=== PATIENT | female | born 1945 ===

== ENCOUNTER 2019-02-04 06:40 | Day surgery (SDC) | payer MEDICARE, OTHER ==
[2019-02-04 07:23] VITALS: BMI 33.2
[2019-02-04] MEDS ORDERED: ISOSULFAN BLUE 10 MG/ML VIAL SQ ONE (07:32)
[2019-02-04] MEDS ORDERED: PROMETHAZINE HCL 25 MG/1 ML VIAL IVPUSH PRN (08:53)
[2019-02-04] MEDS ORDERED: ONDANSETRON 4 MG/2 ML VIAL IVPUSH PRN (08:53)
[2019-02-04] MEDS ORDERED: oxyCODONE HCL 5 MG TABLET PO PRN (08:53)
[2019-02-04] MEDS ORDERED: LACTATED RINGERS SOLUTION 1,000 ML IV SCH (09:00)
[2019-02-04] MEDS ORDERED: PROPOFOL 20 ML ONE ×2 (10:29)
[2019-02-04] MEDS ORDERED: LIDOCAINE HCL/PF 2% SDV 5ML VIAL ONE (10:30)
[2019-02-04] MEDS ORDERED: ceFAZolin SODIUM 1 GM VIAL ONE ×2 (10:30→10:39)
[2019-02-04] MEDS ORDERED: SODIUM CHLORIDE 0.9% P/F 10 ML VIAL IJ ONE (10:39)
[2019-02-04] MEDS ORDERED: DEXAMETHASONE SOD PHOSPHATE 4 MG/1 ML VIAL ONE (10:41)
[2019-02-04] MEDS ORDERED: ceFAZolin 2 GRAM PREMIX BAG IVPB ONE (10:42)
[2019-02-04] MEDS ORDERED: LIDOCAINE HCL 1%, 10 MG/ML (20ML VIAL) NR ONE ×2 (10:54)
[2019-02-04] MEDS ORDERED: KETOROLAC TROMETHAMINE 30 MG/1 ML VIAL ONE (11:13)
--- NOTE | 2019-02-04 12:57 | OP ---
DATE OF OPERATION: 02/04/2019 PREOPERATIVE DIAGNOSIS: Left breast cancer. POSTOPERATIVE DIAGNOSIS: Left breast cancer. PROCEDURE: Left breast ultrasound-guided wire localized lumpectomy and sentinel node biopsy. SURGEON: Tanna Torrez MD ANESTHESIA: General. ESTIMATED BLOOD LOSS: Minimal. COMPLICATIONS: None. This was a sterile procedure. INDICATION FOR PROCEDURE: Patient presented with a screening mammogram that noted a density in the lower outer left breast. On ultrasound, this appears to be a solid, suspicious mass. 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 My recommendation was lumpectomy and central node biopsy. The procedure was discussed with all of the questions answered. PROCEDURE IN DETAIL: Patient was brought to [facility] in [place]. Taken down to nuclear medicine where I injected technetium sulfur colloid as an intradermal injection in the left breast 4 o'clock location. She was then brought up to the operating room, and after induction of general anesthesia and IV antibiotics, an intraoperative ultrasound performed by me in the left breast 4 o'clock location 3 cm from the nipple, the lesion in question was identified. This was localized with a Kopans wire. Images were recorded, 5 mL of Isosulfan blue dye were then injected by me into the left subareolar plexus, and the breast was massaged for 5 minutes. The left breast and axilla were then prepped and draped in the usual sterile fashion. A 4-cm incision was made in the left axilla, carried down to the clavipectoral fascia to identify several sentinel lymph nodes. There were 4 sentinel lymph nodes identified. All were hot and blue. There was no other blue dye radioactivity or pathologic feeling lymph nodes in the left axilla; therefore, once hemostasis was assured, a left breast lumpectomy was performed. A wire was used as a guide to get down to the area. Radial incisions were made in the left 4 o'clock location, and an en bloc lumpectomy was performed tagged with a long stitch lateral, short stitch superior. Grossly I felt I was close inferiorly; therefore, I took a new inferior margin with a stitch at the old margin. Once hemostasis was assured, the lumpectomy cavity was closed with an interrupted 2-0 Vicryl, skin approximated with interrupted 3-0 Vicryl, running 4-0 Prolene. The axillary incision also was closed in a routine fashion with interrupted 3-0 Vicryl, running 4-0 Prolene. A sterile dressing of Steri-Strips and Tegaderm were applied as well as a mammary binder. She tolerated the procedure well, was extubated on the operating room table, taken to recovery in good condition. Macarena [id number]
[2019-02-04 15:14] VITALS: BP 126/60; PULSE 72; TEMP 97.8
--- NOTE | 2019-02-08 13:38 | PATH ---
Surgical Pathology Report Patient Name: JOHN MEREDITH [facility]. Rec. #: [id number] /Age/Gender: 1945 (Age: 73) / F Account: [id number] Location: [facility] SURGICAL Taken: 02/04/2019 Received: 02/04/2019 Reported: 02/08/2019 Physicians: Tanna Torrez M.D. Specimen(s) Received A: AXILLARY SENTINEL LYMPH NODE #1, LEFT, HOT AND BLUE B: AXILLARY SENTINEL LYMPH NODE #2, LEFT, HOT AND BLUE C: AXILLARY SENTINEL LYMPH NODE #3, LEFT, HOT AND BLUE D: AXILLARY SENTINEL LYMPH NODE #4, LEFT, HOT AND BLUE E: BREAST, LEFT, LUMPECTOMY F: BREAST, LEFT, NEW INFERIOR MARGIN Clinical History None given Final Diagnosis A. AXILLARY SENTINEL LYMPH NODE #1, LEFT, HOT AND BLUE, EXCISION: TWO LYMPH NODES NEGATIVE FOR CARCINOMA (0/2). B. AXILLARY SENTINEL LYMPH NODE #2, LEFT, HOT AND BLUE, EXCISION: ONE LYMPH NODE NEGATIVE FOR CARCINOMA (0/1). C. AXILLARY SENTINEL LYMPH NODE #3, LEFT, HOT AND BLUE, EXCISION: ONE LYMPH NODE NEGATIVE FOR CARCINOMA (0/1). D. AXILLARY SENTINEL LYMPH NODE #4, LEFT, HOT AND BLUE, EXCISION: ONE LYMPH NODE NEGATIVE FOR CARCINOMA (0/1). E. BREAST, LEFT, LUMPECTOMY: INVASIVE DUCTAL CARCINOMA, MODERATELY DIFFERENTIATED (TUBULE SCORE: 3/3, NUCLEAR GRADE: 2/3, MITOTIC SCORE: 1/3; TOTAL JOSSUE SCORE: 6/9). INVASIVE CARCINOMA MEASURES 1.2 CM IN GREATEST MICROSCOPIC DIMENSION. FOCAL DUCTAL CARCINOMA IN SITU (DCIS), INTERMEDIATE NUCLEAR GRADE, SOLID AND CRIBRIFORM TYPES. NO LYMPHOVASCULAR INVASION IDENTIFIED. SURGICAL MARGINS ARE UNINVOLVED BY CARCINOMA; INVASIVE CARCINOMA IS 1 MM AND DCIS 3 MM FROM CLOSEST INFERIOR AND MEDIAL MARGINS. SEE SPECIMEN F FOR FINAL INFERIOR MARGIN. REMAINDER OF BREAST PARENCHYMA SHOWS FOCAL ATYPICAL DUCTAL HYPERPLASIA IN A BACKGROUND OF STROMAL FIBROSIS, COLUMNAR CELL CHANGES, MICROCYSTS, AND APOCRINE METAPLASIA. CHANGES OF PRIOR BIOPSY PRESENT. PATHOLOGIC STAGE (pTNM): pT1c pN0(sn). SEE INVASIVE CARCINOMA CASE SUMMARY BELOW. SEE COMMENT. F. BREAST, LEFT, NEW INFERIOR MARGIN, EXCISION: BENIGN FIBROADIPOSE TISSUE. Comment: Part A, Immunohistochemical stain performed and interpreted at [facility] show invasive carcinoma and DCIS are positive for E-Cadherin, supportive of ductal phenotype. Comments Breast Invasive Carcinoma: Surgical Pathology Case Summary (Based on AJCC TNM 8 th edition) Procedure _X_ Excision (less than total mastectomy) Specimen Laterality _X_ Left Tumor Size _X_ Greatest dimension of largest invasive focus >1 mm (millimeters): 12 mm Histologic Type _X_ Invasive carcinoma of no special type (ductal, not otherwise specified) Histologic Grade (Jossue Histologic Score) Glandular (Acinar)/Tubular Differentiation _X_ Score 3 (<10% of tumor area forming glandular/tubular structures) Nuclear Pleomorphism _X_ Score 2 Mitotic Rate _X_ Score 1 Overall Grade _X_ Grade 2 (scores of 6) Tumor Focality _X_ Single focus of invasive carcinoma Ductal Carcinoma In Situ (DCIS) _X_ DCIS is present in specimen _X_ Negative for extensive intraductal component (EIC) Margins Invasive Carcinoma Margins _X_ Uninvolved by invasive carcinoma Distance from closest margin (millimeters): 1 mm from inferior and medial margins in lumpectomy specimen (E); negative in final inferior margin (F) Closest margin: medial DCIS Margins _X_ Uninvolved by DCIS Distance from closest margin (millimeters): 3 mm from inferior and medial margins in lumpectomy specimen (E); negative in final inferior margin (F) Closest margin: medial Regional Lymph Nodes _X_ Uninvolved by tumor cells Number of Lymph Nodes Examined: 5 Number of Cameron Nodes Examined: 5 Treatment Effect _X_ No known presurgical therapy Lymphovascular Invasion _X_ Not identified Pathologic Stage Classification (pTNM, AJCC 8th Edition) Primary Tumor (Invasive Carcinoma) (pT) _X_ pT1c: Tumor >10 mm but =20 mm in greatest dimension Regional Lymph Nodes (pN) Category (pN) _X_ pN0: No regional lymph node metastasis identified or ITCs only Biomarker Studies Results of ER and NV studies performed on this specimen (block#E2) at [facility] are as follows: ER (clone [id number] mouse monoclonal antibody by [employer]): >90% nuclear staining with strong intensity (Positive). NV (clone16 mouse monoclonal antibody by [employer]): >70% nuclear staining with moderate to strong intensity (Positive). Results of Her2 (IHC) & Ki-67 studies performed on this specimen (block#E2) at [place], [place] ([id number]) are as follows: Her2 IHC (EP3 from [employer], formerly known as [id number], using [employer] Polymer Refine detection kit): 0-1+ (Negative). Ki67: ~5% (Low proliferative index). Positive and negative controls (internal if applicable) show appropriate results. Formalin fixation and cold ischemic times are within current ASCO/CAP recommendations for ER, NV and Her2 testing. Electronically Signed Grace Stokes M.D. Gross Description A. Received in formalin labeled "left axillary sentinel lymph node #1," are 2 ayl lymph nodes with attached fat measuring 0.9 x 0.6 x 0.3 cm and 1.8 x 1.3 x 0.9 cm. The specimen is entirely submitted in 3 cassettes as follows: 1-smaller lymph node; 2-3-larger trisected lymph node. B. Received in formalin labeled "left axillary sentinel lymph node #2," is a 1.2 x 0.7 x 0.3 cm lymph node with attached fat. The specimen is submitted in toto in one cassette. C. Received in formalin labeled "left axillary sentinel lymph node #3," is a 2.2 x 1.1 x 0.8 cm lymph node with attached fat. The specimen is trisected and entirely submitted in 2 cassettes. D. Received in formalin labeled "left axillary sentinel lymph node #4," is a 1.7 x 1.3 x 0.6 cm lymph node with attached fat. The specimen is bisected and entirely submitted in one cassette. E. Received in formalin, labeled "left breast lumpectomy," is a 5.8 x 4.5 x 3.3 cm. aly-yellow, irregular, portion of fibroadipose tissue with a needle localization wire present. There is a short suture marking the superior aspect and a long suture marking the lateral aspect, per the surgeon. There is no skin or nipple present. The specimen is inked as follows: Superior blue; inferior green; anterior and lateral red; medial yellow; deep black. The specimen is serially sectioned from anterior to deep. Sectioning reveals a 1.2 x 1.0 x 1.0 cm aly, indurated mass abutting the medial and inferior margins. The mass is 0.9 cm from the lateral margin. The remaining margins appear clear mass. Car Carder sections are submitted in 6 cassettes as follows: 1-full face section of mass with medial and inferior margins; 2-additional full face section of mass with medial, inferior and lateral margins; 3-additional lateral margin; 4-superior margin; 5-anterior margin; 6-deep margin. Total formalin fixation time: Approximately 30 hours F. Received in formalin labeled "left breast inferior margin," is a 3.5 x 2.3 x 0.8 cm aly-yellow, irregular portion of fibroadipose tissue with a suture marking the old margin, per the surgeon. The new margin is inked black and the specimen is serially sectioned. The specimen is entirely and sequentially submitted in 4 cassettes. 02/05/2019 [facility]02/05/2019
== END 2019-02-04 15:30 | disposition home or self-care (01) ==
LOC: JASU-SURG 06:40
PROVIDERS: ATTEND Surgery
PROC: 0HBU0ZZ Excision of Left Breast, Open Approach (ICD-10-PCS; principal; 2019-02-04 09:30)
DX: C50.512 Malignant neoplasm of lower-outer quadrant of left female breast (principal)
CPT/HCPCS: 78195-TC; 88307-TC; 88342-TC; 94760; A9541